=== PATIENT | female | born 1970 | race Caucasian/White ===

== ENCOUNTER → 2023-11-13 18:03 | Outpatient (REF) | payer OTHER, SELFPAY | LOC: HWRAD 18:03 | PROVIDERS: ATTENDING PHYSICIAN Physician Assistant | DX: R09.A2 Foreign body sensation, throat (principal) | CPT/HCPCS: 70360 ==

== ENCOUNTER 2024-02-09 10:51 | Emergency (ER) | payer OTHER, SELFPAY ==
[2024-02-09 10:58] VITALS: BP 137/81
[2024-02-09 11:27] VITALS: BMI 31.9
--- NOTE | 2024-02-09 12:07 | ED.GENMED ---
History of Present Illness
General
Chief Complaint: Skin Surface Trauma
Source: patient
Exam Limitations: none
Time Seen by Provider: 02/09/24 12:06
Nursing documentation reviewed up to this point in time: agreed with
History of Present Illness
History of Present Illness:
This is a 53 y/o female with a PMH of HTN, HLP, diabetes presenting to the emergency department today with concerns of left index finger laceration. Patient reports that she was slicing a avocado today and getting the pit out with a large knife when
she accidentally cut her finger. Patient is right-handed. Patient works as a photographic developer and printer. Patient denies any paresthesias, any loss of sensation in her fingers. Patient states that she is not up to date on her tetanus. Patient states that
she had a difficult time controlling the bleeding home. Patient present with . Patient denies any other injuries.
Past History
Past History
ED Past Medical History: Psychiatric
ED Past Surgical History: None
Social History
Tobacco: Non-smoker
Alcohol: Occasional
Drug: None
Personal:
Living: with family
Employment: Employed (self employed)
Review of Systems
Review of Systems
All Other Systems: ROS reviewed and negative except as documented in HPI and ROS
Phy Exam
Physical Exam
Physical Exam:
General: Patient is well appearing and in no acute distress; non-toxic
Skin: Warm and dry, there is a 2 cm V-shaped well vascularized flap laceration on the anterior aspect of the distal left index finger. No obvious tendon involvement. No foreign body.
Head: Normocephalic, atraumatic
Eyes: Sclera non-icteric. EOMs intact.
Cardiac: Regular rate
Peripheral Vascular: Brisk capillary refill bilaterally.
Pulm: Normal respiratory effort
Musculoskeletal: Left index FDS and FDP testing intact. No bony tenderness to palpation.
Neuro: Sensation intact to light touch bilaterally. CN II-XII intact, no focal neurologic deficits.
Psychiatric: Appropriate mood and affect.
Course
Orders/Labs/Results
Orders:
Orders
02/09/24 11:37
Finger(s)/Thumb 2 View Lt [CR Finger(s)/thumb Min 2 Vw Lt] Urgent
Comment:
Reason For Exam: LAC
Indicate Which Finger:: Index Finger
02/09/24 12:15
Ibuprofen [Motrin] 400 mg PO NOW STA
Tetanus/Diphth/Acelpertussis [Adacel] 0.5 ml IM .ONCE ONE
02/09/24 13:17
Acetaminophen [Tylenol] 1,000 mg PO NOW STA
Vital Signs
Initial and Last Documented VS:
Initial Vital Signs
Temp Pulse Resp BP Pulse Ox
97.7 F 71 18 137/81 99
02/09/24 10:58 02/09/24 10:58 02/09/24 10:58 02/09/24 10:58 02/09/24 10:58
Last Documented Vital Signs
Temp Pulse Resp BP Pulse Ox
97.7 F 71 18 137/81 99
02/09/24 10:58 02/09/24 10:58 02/09/24 10:58 02/09/24 10:58 02/09/24 10:58
Procedures
Laceration Closure
Left First Finger:
Status of Wound: clean
Size of Wound in cm: 2
Description of Wound Edges: ragged and flap-well vascularized
Preparation: cleaned with saline
Anesthesia: 1% Lidocaine and Digital-Regional
Revision/Debridement: routine- no revision
Wound exploration: explored to base- no FB
Type of Closure: single layer closure
Skin Closure Material: 4-0 prolene
Number of sutures: 8
MDM/Problems Addressed
Differential Diagnosis Includes:
ddx include simple laceration, neurovascular injury, phalanx fracture, flexor tendon injury
MDM/Problems Addressed:
Finger laceration:
This is a 53 y/o female with a PMH of HTN, HLP, diabetes presenting to the emergency department today with concerns of left index finger laceration. Patient cut her finger on a knife. Patient is right-handed. On exam, she is neurovascularly
intact, no obvious tendon involvement, FDS FDP testing intact. Patient laceration was repaired with stitches. Patient tolerated procedure well. Finger splint provided for patient's comfort. X-ray negative for distal phalanx fracture or foreign
body. Discussed range of motion exercises for finger. Discussed return precautions . Discussed wound care. Patient stable for discharge.
Chronic conditions affecting care:
htn, anxiety, depression
Acute Exacerbation and/or Progression of Chronic Illness:
htn, anxiety, depression
*Radiology
Radiology exam reviewed: preliminary read by ED provider (no acute fracture or dislocatiobn)
*Pulse Oximetry
Patient hypoxic: no
*Critical Care Note
Total Time (30-74mins, 75-104mins- exclusive of procedures): Not Applicable
Data Reviewed
Review of Other/Old Records Reveals: Records (reviewed ER physician documentation from 09/10/19, 05/30/19)
Source: patient and records
Prescriptions/Medications Considered But Not Given:
Considered antibiotics but no signs of active infection, clean wound thoroughly irrigated
Patient Management
Escalation/DeEscalation of care consider admission/obs:
Case reviewed with my attending Dr. Del Cid. Patient stable for discharge
ED Attending Note
-
Portions of this chart may have been created with voice recognition software.� Occasional wrong word or��sound alike� substitutions may have occurred due to the inherent limitations of voice recognition software.
Discharge Plan
Departure
Patient Disposition: Home (Routine Discharge)
Date of Disposition: 02/09/24
Time of Disposition: 13:15
Patient with high blood pressure during this ER visit?: Yes
Condition: Good
Discharge Problem:
Finger laceration
Instructions: Wound Care (DC), Laceration Repair With Stitches (DC), BLOOD PRESSURE
Prescriptions:
No Action
multivitamin 1 EACH tablet
1 ea PO DAILY
Patient Comments:
Pt states takes when she remembers
bupropion HCl [Wellbutrin SR] 150 MG tablet sustained-release 12 hr
150 mg PO DAILY
Patient Comments:
Pt states not taking regularly
acetaminophen 325 MG tablet
650 mg PO Q4HPRN PRN (Reason: mild pain, fever)
C,E,zinc,copper [id number]-[id number]-karime 1 CAP capsule
1 cap PO DAILY
Patient Comments:
Pt states takes when she remembers
pkqnhshvhsyezck-hzyxnhwsh-YO [Bromfed DM] 118 ML syrup
10 ml PO Q4HPRN PRN (Reason: cough) Qty: 120 0RF
Referrals:
Joaquin Mercado PA [Family Provider] -
Activity Restrictions/Additional Instructions:
Patient please return emergency department should you experience purulent drainage from your wound, extensive redness surrounding the wound, increasing pain, fevers or chills, or any other signs or symptoms concerning to you.
Please report to your family doctor, the emergency department, urgent care in 10 to 12 days to have your stitches.
Please keep the wound dry for 24 hours. After 24 hours, you can clean the wound with mild soap and water. You can alternate Tylenol and Motrin for pain.
Interventions
Interventions:
*Risk Screen - Suicide Last Done: 02/09/24 11:28
*General Assessment Last Done: 02/09/24 10:57
*Neglect/Abuse Screening Last Done: 02/09/24 11:28
ED- Fall Risk Assessment Last Done: 02/09/24 11:28
*ED COVID-19 Vaccine History Last Done: 02/09/24 11:02
*Nursing Disposition Last Done: 02/09/24 13:51
ED-Skin Assessment Last Done: 02/09/24 11:30
Discharge Date and Time
Discharge Date/Time: 02/09/24 13:51
Print Language: NEPALI
[2024-02-09] MEDS: MOTRIN 400 MG PO (12:20)
[2024-02-09] MEDS: ADACEL 0.5 ML IM (12:20)
[2024-02-09] MEDS: TYLENOL 1000 MG PO (13:36)
== END 2024-02-09 13:51 | disposition home or self-care (01) ==
LOC: EMR 10:51
PROVIDERS: EMERGENCY PHYSICIAN Emergency Medicine; FAMILY PHYSICIAN Physician Assistant
DX: S61.211A Laceration without foreign body of left index finger without damage to nail, initial encounter (principal); W26.0XXA Contact with knife, initial encounter; I10 Essential (primary) hypertension; E78.5 Hyperlipidemia, unspecified; E11.9 Type 2 diabetes mellitus without complications; F41.9 Anxiety disorder, unspecified; F32.A Depression, unspecified; Z23 Encounter for immunization
CPT/HCPCS: 99283; 12001; 90471; 73140; 90715

== ENCOUNTER 2024-02-10 10:03 | Emergency (ER) | payer OTHER, SELFPAY ==
[2024-02-10 10:07] VITALS: BP 147/68
[2024-02-10 10:34] VITALS: BMI 33.9
--- NOTE | 2024-02-10 12:23 | ED.GENMED ---
History of Present Illness
General
Chief Complaint: Skin Surface Trauma
Source: patient
Exam Limitations: none
Time Seen by Provider: 02/10/24 11:39
Nursing documentation reviewed up to this point in time: agreed with
History of Present Illness
History of Present Illness:
Patient is a 53-year-old female who presented to the ER for evaluation of bleeding wound. Patient was seen here yesterday for laceration to finger and had sutures placed. Patient complains of bleeding from the wound .
Past History
Past History
ED Past Medical History: Psychiatric
ED Past Surgical History: None
Social History
Tobacco: Non-smoker
Alcohol: Occasional
Drug: None
Personal:
Living: with family
Employment: Employed (self employed)
Review of Systems
Review of Systems
Allergies reviewed?: Yes
All Other Systems: ROS reviewed and negative except as documented in HPI and ROS
Constitutional: Reports no symptoms
Musculoskeletal: Reports other (bleeding from laceration from left index finger )
Skin: Reports no symptoms
Neurological: Reports no symptoms
Psychiatric: Reports no symptoms
Phy Exam
General Physical Exam
General Presentation: well appearing
General age: appears stated age
General Skin: warm and dry
General Habitus: normal
General Mental: alert
General Hydration: appears well hydrated
Neurological Exam
Neurological Exam: alert and oriented x3
Musculoskeletal Exam
Musculoskeletal Exam: other (left index finger with sutures no dehiscence no purulent drainage + bleeding from wound a couple days ago)
Skin Exam
Skin Exam: normal color and warm/dry
Psychiatric Exam
Psychiatric Exam: normal mood/affect
Course
Vital Signs
Initial and Last Documented VS:
Initial Vital Signs
Pulse Resp BP Pulse Ox
72 17 147/68 97
02/10/24 10:07 02/10/24 10:07 02/10/24 10:07 02/10/24 10:07
Last Documented Vital Signs
Pulse Resp BP Pulse Ox
72 17 147/68 97
02/10/24 10:07 02/10/24 10:07 02/10/24 10:07 02/10/24 10:07
MDM/Problems Addressed
Differential Diagnosis Includes:
not limited to bleeding from wound
MDM/Problems Addressed:
Patient had laceration of left index finger Sutured yesterday here in the ER presents today with bleeding from wound. on exam pt does have bleeding from the wound however no other concerning findings on exam. Gelfoam applied bleeding
resolved.
*Critical Care Note
Total Time (30-74mins, 75-104mins- exclusive of procedures): Not Applicable
ED Attending Note
-
Portions of this chart may have been created with voice recognition software.� Occasional wrong word or��sound alike� substitutions may have occurred due to the inherent limitations of voice recognition software.
Discharge Plan
Departure
Patient Disposition: Home (Routine Discharge)
Date of Disposition: 02/10/24
Time of Disposition: 12:31
Patient with high blood pressure during this ER visit?: Yes
Condition: Fair
Covid-19: Not Applicable
Discharge Problem:
Laceration
Instructions: Wound Care (DC), BLOOD PRESSURE
Prescriptions:
No Action
multivitamin 1 EACH tablet
1 ea PO DAILY
Patient Comments:
Pt states takes when she remembers
bupropion HCl [Wellbutrin SR] 150 MG tablet sustained-release 12 hr
150 mg PO DAILY
Patient Comments:
Pt states not taking regularly
acetaminophen 325 MG tablet
650 mg PO Q4HPRN PRN (Reason: mild pain, fever)
C,E,zinc,copper 96-wv2-fme-karime 1 CAP capsule
1 cap PO DAILY
Patient Comments:
Pt states takes when she remembers
alpctuhuswebryd-oymaddakc-EE [Bromfed DM] 118 ML syrup
10 ml PO Q4HPRN PRN (Reason: cough) Qty: 120 0RF
Referrals:
Joaquin Mercado PA [Family Provider] -
Activity Restrictions/Additional Instructions:
In order to stop bleeding a small piece of Gelfoam was applied on top of your wound. This will fall off on its own. Please see your family doctor in the next 2 days for reevaluation of wound. Return if any signs infection increased pain swelling
redness drainage fever chills.
Interventions
Interventions:
*Risk Screen - Suicide Last Done: 02/10/24 10:08
*General Assessment Last Done: 02/10/24 10:08
*Neglect/Abuse Screening Last Done: 02/10/24 10:08
ED- Fall Risk Assessment Last Done: 02/10/24 10:36
*ED COVID-19 Vaccine History Last Done: 02/10/24 10:08
ED-Skin Assessment Last Done: 02/10/24 10:08
Discharge Date and Time
Print Language: LAO
[2024-02-10] MEDS: TYLENOL 650 MG PO (12:31)
[2024-02-10 12:38] VITALS: BP 145/65
== END 2024-02-10 12:39 | disposition home or self-care (01) ==
LOC: EMR 10:03
PROVIDERS: EMERGENCY PHYSICIAN Emergency Medicine; FAMILY PHYSICIAN Physician Assistant
DX: Z48.01 Encounter for change or removal of surgical wound dressing (principal); I10 Essential (primary) hypertension; E11.9 Type 2 diabetes mellitus without complications; F41.9 Anxiety disorder, unspecified; F32.A Depression, unspecified; Z91.51 Personal history of suicidal behavior; Z88.1 Allergy status to other antibiotic agents
CPT/HCPCS: 99283

== ENCOUNTER 2024-02-17 11:04 | Emergency (ER) | payer OTHER, SELFPAY ==
[2024-02-17 11:17] VITALS: BP 136/80
--- NOTE | 2024-02-17 13:24 | ED.MUSCINJ ---
HPI-Injury
General
Chief Complaint: Fall
Source: patient
Exam Limitations: none
Time Seen by Provider: 02/17/24 12:52
History of Present Illness-Injury
Initial Injury comments:
53-year-old female presents complaining of left chest wall pain starting last evening. She fell in the bathroom and landed on the edge of the tub. She did not get knocked out. She notes persistent pain when she takes a deep breath to the left
lateral chest. She also inquires about a check on her recent finger injury. She was here 8 days ago and had sutures placed in the left index finger.
Past History
Past History
ED Past Medical History: Psychiatric
ED Past Surgical History: None
Social History
Tobacco: Non-smoker
Alcohol: Occasional
Drug: None
Personal:
Living: with family
Employment: Employed (self employed)
Phy Exam
Physical Exam
Physical Exam:
General: Well-appearing female no acute respiratory distress
HEENT: Normocephalic atraumatic
Musculoskeletal exam: Patient is tender over the left lateral chest wall no step-off or deformity or overlying ecchymosis
Skin: Examination left index finger provides well-appearing laceration with intact sutures to the volar aspect overlying the DIP joint. No surrounding erythema. No swelling of the finger
Injury Course
Orders/Labs/Results
Orders:
Orders
02/17/24 13:11
Lidocaine/Epinephrine/Tetracai [Let Topical Anesthetic Gel] 3 ml .ROUTE .STK-MED ONE
02/17/24 13:15
CR Ribs-left 3 Vw W/pa Chest Urgent
Comment:
Reason For Exam: fall
MDM/Problems Addressed
Differential Diagnosis Includes:
X-rays left ribs pending. There are 2 sutures that are very tight and need to come out. These will be removed
*Critical Care Note
Total Time (30-74mins, 75-104mins- exclusive of procedures): Not Applicable
Update Note
Update Note:
X-rays personally visualized and are negative for acute finding. Patient reassured. 2 sutures that were too tight and overgrown were removed however the wound is not ready for the remaining sutures to be removed. I advised that she return or go
to her family doctor this coming Sunday or for suture removal. Stable for discharge
ED Attending Note
-
Portions of this chart may have been created with voice recognition software.� Occasional wrong word or��sound alike� substitutions may have occurred due to the inherent limitations of voice recognition software.
Discharge Plan
Departure
Patient Disposition: Home (Routine Discharge)
Date of Disposition: 02/17/24
Time of Disposition: 14:43
Patient with high blood pressure during this ER visit?: No
Discharge Problem:
Contusion
Instructions: Contusion (DC)
Prescriptions:
No Action
multivitamin 1 EACH tablet
1 ea PO DAILY
Patient Comments:
Pt states takes when she remembers
bupropion HCl [Wellbutrin SR] 150 MG tablet sustained-release 12 hr
150 mg PO DAILY
Patient Comments:
Pt states not taking regularly
acetaminophen 325 MG tablet
650 mg PO Q4HPRN PRN (Reason: mild pain, fever)
C,E,zinc,copper 01-xy0-htm-karime 1 CAP capsule
1 cap PO DAILY
Patient Comments:
Pt states takes when she remembers
dyibdmqogfenrjv-yciouclpp-CZ [Bromfed DM] 118 ML syrup
10 ml PO Q4HPRN PRN (Reason: cough) Qty: 120 0RF
Referrals:
Joaquin Mercado PA [Family Provider] -
Activity Restrictions/Additional Instructions:
Continue with ibuprofen or Tylenol as needed for pain. Follow-up in 3 to 4 days for suture removal. Return if needed otherwise
Discharge Date and Time
Print Language: PERUVIAN
== END 2024-02-17 15:02 | disposition home or self-care (01) ==
LOC: EMR 11:04
PROVIDERS: EMERGENCY PHYSICIAN Emergency Medicine; FAMILY PHYSICIAN Physician Assistant
DX: S20.219A Contusion of unspecified front wall of thorax, initial encounter (principal); W19.XXXA Unspecified fall, initial encounter
CPT/HCPCS: 99283; 71101

== ENCOUNTER → 2024-04-30 16:08 | Outpatient (REF) | payer OTHER, SELFPAY | LOC: WDC 16:08 | PROVIDERS: ATTENDING PHYSICIAN Nurse Practitioner Adult Health; FAMILY PHYSICIAN Physician Assistant | DX: Z01.419 Encounter for gynecological examination (general) (routine) without abnormal findings (principal); Z12.31 Encounter for screening mammogram for malignant neoplasm of breast | CPT/HCPCS: 77063; 77067 ==

== ENCOUNTER → 2024-07-18 10:48 | Outpatient (REF) | payer OTHER, SELFPAY | LOC: HWRAD 10:48 | PROVIDERS: ATTENDING PHYSICIAN Student in an Organized Health Care Education/Training Program | DX: M25.552 Pain in left hip (principal) | CPT/HCPCS: 73502 ==

== ENCOUNTER → 2025-05-01 09:47 | Outpatient (REF) | payer OTHER, SELFPAY | LOC: HWWDC 09:47 | PROVIDERS: ATTENDING PHYSICIAN Nurse Practitioner Adult Health | DX: Z12.31 Encounter for screening mammogram for malignant neoplasm of breast (principal) | CPT/HCPCS: 77063; 77067 ==